=== PATIENT | female | born 1985 | race Caucasian/White ===

== ENCOUNTER 2017-07-22 07:50 | Day surgery (SDC) | payer BC, OTHER ==
[~2017-07-22] VITALS: Ht 162.6 cm; Wt 74.1 kg
[~2017-07-22 07:50] MED LIST: ALPR.5; AZIT250 PO; BENZ100A PO; BUPR150ER PO; ESCI20; IBUP600 PO; Inderal 20 mg T20 MG PO; LAMO25; LORA.5; METHI10 PO; Methimazole5 MG PO; Naprosyn500 MG PO; ONDA4 PO; Omeprazole20 M1; PARO20 PO; PROP10; Paxil40 MG PO; Percocet 5-3251 EACH PO; SERT50 PO; SOMA350 MG PO; Sudogest30 MG PO; TRAZ100; Ultram50 MG PO; Ventolin/Prove6.7 GM INH; [UNRECOGNIZED DRUG - REMARK] PO
[2017-07-22] MEDS ORDERED: Advil200 M1 PO (08:33)
[2018-03-29] MEDS ORDERED: Augmentin 875-1 EACH PO (21:16)
[2018-03-29] MEDS ORDERED: Norco 5-325 Ta1 EACH PO (21:16)
== END 2017-07-22 13:07 | disposition home or self-care (01) ==
LOC: ORSCSDS 07:50
PROVIDERS: Otolaryngology
PROC: 0GTK0ZZ Resection of Thyroid Gland, Open Approach (ICD-10-PCS; principal; 2017-07-22 09:00)
PROC: 0GBJ0ZZ Excision of Thyroid Gland Isthmus, Open Approach (ICD-10-PCS; principal; 2017-07-22 09:00)
DX: E05.00 Thyrotoxicosis with diffuse goiter without thyrotoxic crisis or storm (principal); J44.9 Chronic obstructive pulmonary disease, unspecified; K21.9 Gastro-esophageal reflux disease without esophagitis; F17.210 Nicotine dependence, cigarettes, uncomplicated; Z79.899 Other long term (current) drug therapy
CPT/HCPCS: 88307; J0171; J0330; J1100; J1200; J2250; J2270; J2405; J2550; J3010; J7040; J7120

== ENCOUNTER → 2017-10-27 | Outpatient (CLI) | payer BC ==
[~2017-10-27] MED LIST changes: +Advil200 M1 PO
[2017-10-27 14:37] LABS: BASOPHILS PERCENT AUTO 1 % (0-2); EOSINOPHILS PERCENT AUTO 6 % (0-6); Hematocrit 36.8 % (33.0-51.0); Hemoglobin 12.8 g/dL (11.5-16.0); IMMATURE GRAN ABSOLUTE AUTO 0.03 K/mm3 (0.00-0.10); IMMATURE GRAN PERCENT AUTO 0 % (0-1); LYMPHOCYTES ABSOLUTE AUTO 3.83 K/mm3 (0.84-5.20); LYMPHOCYTES PERCENT AUTO 36 % (21-46); MONOCYTES ABSOLUTE AUTO 0.61 K/mm3 (0.16-1.47); MONOCYTES PERCENT AUTO 6 % (4-13); Mean Corpuscular HGB 31.4 pg (26.0-34.0); Mean Corpuscular HGB Conc 34.8 g/dL (31.5-36.5); Mean Corpuscular Volume 90 fL (80-100); Mean Platelet Volume 10.2 fL (9.1-12.4); NEUTROPHILS ABSOLUTE AUTO 5.54 K/mm3 (1.96-9.15); NEUTROPHILS PERCENT AUTO 52 % (41-73); Platelet Count 358 K/mm3 (150-400); RDW Coefficient Variation 12.9 % (11.7-14.2); RDW Standard Deviation 42.5 fL (35.1-46.3); Red Blood Cell Count 4.07 M/mm3 (3.80-5.20); White Blood Cell Count 10.71 K/mm3 (4.00-11.30)
[2017-10-27 14:59] LABS: Alanine Aminotransfer (ALT/SGP 24 U/L (12-78); Albumin, Blood 3.7 g/dL (3.4-5.0); Albumin/Globulin Ratio 0.9 (0.8-1.8); Alk Phos 82 U/L (40-126); Anion Gap 10 mmol/L (6-16); Aspartate Aminotrans (AST/SGOT 17 U/L (12-37); Bilirubin, Total 0.2 mg/dL (0.1-1.0); Blood Urea Nitrogen 14 mg/dL (8-24); Bun/Creatinine Ratio 20.9 (12.0-20.0); CO2, Blood 25 mmol/L (21-32); Calcium, Blood 8.9 mg/dL (8.5-10.1); Chloride, Blood 103 mmol/L (98-108); Creatinine, Blood 0.67 mg/dL (0.40-1.00); Free Thyroxine 1.15 ng/dL (0.70-1.60); Globulin, Blood 3.9 g/dL (2.2-4.0); Glomerular Filtration Rate >60 (60-); Glucose, Blood 127 mg/dL (70-99); Potassium, Blood 3.6 mmol/L (3.5-5.5); Sodium, Blood 138 mmol/L (136-145); Thyroid Stimulating Hormone 1.078 uIU/mL (0.360-4.800); Total Protein, Blood 7.6 g/dL (6.4-8.2)
== END ==
LOC: LAB SHORT 14:34 → LAB EV 14:34
PROVIDERS: General Practice
DX: E05.00 Thyrotoxicosis with diffuse goiter without thyrotoxic crisis or storm (principal); R53.81 Other malaise; R53.83 Other fatigue
CPT/HCPCS: 80053; 84439; 84443; 84481; 85025; 86800

== ENCOUNTER → 2018-02-12 | Outpatient (CLI) | payer OTHER ==
[2018-02-12 13:40] LABS: BASOPHILS ABSOLUTE AUTO 0.07 K/mm3 (0.00-0.23); BASOPHILS PERCENT AUTO 1 % (0-2); EOSINOPHILS ABSOLUTE AUTO 0.36 K/mm3 (0.00-0.68); EOSINOPHILS PERCENT AUTO 3 % (0-6); Hematocrit 39.2 % (33.0-51.0); Hemoglobin 13.3 g/dL (11.5-16.0); IMMATURE GRAN ABSOLUTE AUTO 0.02 K/mm3 (0.00-0.10); IMMATURE GRAN PERCENT AUTO 0 % (0-1); LYMPHOCYTES ABSOLUTE AUTO 2.68 K/mm3 (0.84-5.20); LYMPHOCYTES PERCENT AUTO 24 % (21-46); MONOCYTES ABSOLUTE AUTO 0.61 K/mm3 (0.16-1.47); MONOCYTES PERCENT AUTO 5 % (4-13); Mean Corpuscular HGB 30.3 pg (26.0-34.0); Mean Corpuscular HGB Conc 33.9 g/dL (31.5-36.5); Mean Corpuscular Volume 89 fL (80-100); Mean Platelet Volume 10.2 fL (9.1-12.4); NEUTROPHILS ABSOLUTE AUTO 7.54 K/mm3 (1.96-9.15); NEUTROPHILS PERCENT AUTO 67 % (41-73); Platelet Count 387 K/mm3 (150-400); RDW Coefficient Variation 13.2 % (11.7-14.2); RDW Standard Deviation 43.5 fL (35.1-46.3); Red Blood Cell Count 4.39 M/mm3 (3.80-5.20); White Blood Cell Count 11.28 K/mm3 (4.00-11.30)
[2018-02-12 13:45] LABS: Anion Gap 10 mmol/L (6-16); Blood Urea Nitrogen 11 mg/dL (8-24); Bun/Creatinine Ratio 15.9 (12.0-20.0); CO2, Blood 24 mmol/L (21-32); Chloride, Blood 102 mmol/L (98-108); Creatinine, Blood 0.69 mg/dL (0.40-1.00); Glomerular Filtration Rate >60 (60-); Glucose, Blood 93 mg/dL (70-99); Potassium, Blood 3.8 mmol/L (3.5-5.5); Sodium, Blood 136 mmol/L (136-145)
== END | disposition home or self-care (01) ==
LOC: LAB SHORT 13:36 → LAB EV 13:36
PROVIDERS: Physician Assistant Surgical
DX: R51 Headache (principal)
CPT/HCPCS: 80048; 85025

== ENCOUNTER 2018-09-30 14:56 | Emergency (ER) | payer OTHER ==
[~2018-09-30] VITALS: Ht 160 cm; Wt 81.7 kg
[~2018-09-30 14:56] MED LIST changes: +Augmentin 875-1 EACH PO; +Norco 5-325 Ta1 EACH PO
[2018-09-30] MEDS ORDERED: AMIT25 (15:03)
[2018-09-30] MEDS ORDERED: LEVSOD75 (15:03)
[2018-09-30 16:08] LABS: Source, Urine Clean Catch
[2018-09-30 16:11] LABS: BASOPHILS ABSOLUTE AUTO 0.05 K/mm3 (0.00-0.23); BASOPHILS PERCENT AUTO 1 % (0-2); EOSINOPHILS PERCENT AUTO 0 % (0-6); Hematocrit 40.2 % (33.0-51.0); Hemoglobin 13.7 g/dL (11.5-16.0); IMMATURE GRAN ABSOLUTE AUTO 0.03 K/mm3 (0.00-0.10); IMMATURE GRAN PERCENT AUTO 0 % (0-1); LYMPHOCYTES ABSOLUTE AUTO 0.99 K/mm3 (0.84-5.20); LYMPHOCYTES PERCENT AUTO 13 % (21-46); MONOCYTES ABSOLUTE AUTO 0.14 K/mm3 (0.16-1.47); MONOCYTES PERCENT AUTO 2 % (4-13); Mean Corpuscular HGB 31.1 pg (26.0-34.0); Mean Corpuscular HGB Conc 34.1 g/dL (31.5-36.5); Mean Corpuscular Volume 91 fL (80-100); Mean Platelet Volume 10.8 fL (9.1-12.4); NEUTROPHILS ABSOLUTE AUTO 6.28 K/mm3 (1.96-9.15); NEUTROPHILS PERCENT AUTO 84 % (41-73); Platelet Count 366 K/mm3 (150-400); RDW Coefficient Variation 13.7 % (11.7-14.2); RDW Standard Deviation 46.3 fL (35.1-46.3); Red Blood Cell Count 4.41 M/mm3 (3.80-5.20); White Blood Cell Count 7.49 K/mm3 (4.00-11.30)
[2018-09-30 16:22] LABS: Bilirubin, Urine Neg (Neg); Blood, Urine Neg (Neg); Glucose Qualitative, Urine Neg (Neg); Ketones, Urine Neg (Neg); Leukocyte Esterase, Urine Neg (Neg); Nitrite, Urine Neg (Neg); Protein, Urine Neg (Neg); Specific Gravity, Urine 1.005 (1.003-1.022); Urobilinogen, Urine NORM (Normal)
[2018-09-30 16:37] LABS: Appearance, Urine Clear (Clear); Color, Urine Yellow (P-Yellow)
[2018-09-30 16:38] LABS: Alanine Aminotransfer (ALT/SGP 38 U/L (12-78); Albumin/Globulin Ratio 0.8 (0.8-1.8); Alk Phos 72 U/L (50-136); Anion Gap 8 mmol/L (6-16); Aspartate Aminotrans (AST/SGOT 37 U/L (12-37); Bilirubin, Total 0.3 mg/dL (0.1-1.0); Blood Urea Nitrogen 7 mg/dL (8-24); Bun/Creatinine Ratio 14.1 (12.0-20.0); CO2, Blood 22 mmol/L (21-32); Calcium, Blood 9.1 mg/dL (8.5-10.1); Chloride, Blood 107 mmol/L (98-108); Globulin, Blood 4.9 g/dL (2.2-4.0); Glomerular Filtration Rate >60 (60-); Glucose, Blood 119 mg/dL (70-99); Potassium, Blood 4.1 mmol/L (3.5-5.5); Sodium, Blood 137 mmol/L (136-145); Total Protein, Blood 8.9 g/dL (6.4-8.2)
[2018-09-30 16:49] LABS: Influenza A Negative (NEGATIVE); Influenza B Negative (NEGATIVE)
== END 2018-09-30 20:03 | disposition home or self-care (01) ==
LOC: ER 14:56
PROVIDERS: Physician Assistant
DX: R55 Syncope and collapse (principal); K59.00 Constipation, unspecified; Z88.5 Allergy status to narcotic agent; Z79.899 Other long term (current) drug therapy
CPT/HCPCS: 36415; 71046; 80053; 81003; 81025; 85025; 85379; 87804; 93005; 93010; 96361; 96374; 99284-25; J2405; J7030

== ENCOUNTER 2018-11-13 05:50 | Emergency (ER) | payer SELFPAY ==
[~2018-11-13] VITALS: Ht 162.6 cm; Wt 54.4 kg
[~2018-11-13 05:50] MED LIST changes: +AMIT25; +LEVSOD75
[2018-11-13] MEDS ORDERED: Pseudoephedrine30 MG PO (06:28)
[2018-11-13] MEDS ORDERED: FLONASE ALLERG9.9 ML (06:28)
[2018-11-13 06:54] LABS: BASOPHILS ABSOLUTE AUTO 0.07 K/mm3 (0.00-0.23); BASOPHILS PERCENT AUTO 1 % (0-2); EOSINOPHILS ABSOLUTE AUTO 0.31 K/mm3 (0.00-0.68); EOSINOPHILS PERCENT AUTO 3 % (0-6); Hematocrit 38.3 % (33.0-51.0); Hemoglobin 12.9 g/dL (11.5-16.0); IMMATURE GRAN ABSOLUTE AUTO 0.03 K/mm3 (0.00-0.10); IMMATURE GRAN PERCENT AUTO 0 % (0-1); LYMPHOCYTES ABSOLUTE AUTO 4.85 K/mm3 (0.84-5.20); LYMPHOCYTES PERCENT AUTO 47 % (21-46); MONOCYTES ABSOLUTE AUTO 0.75 K/mm3 (0.16-1.47); MONOCYTES PERCENT AUTO 7 % (4-13); Mean Corpuscular HGB 31.2 pg (26.0-34.0); Mean Corpuscular HGB Conc 33.7 g/dL (31.5-36.5); Mean Corpuscular Volume 93 fL (80-100); Mean Platelet Volume 10.4 fL (9.1-12.4); NEUTROPHILS ABSOLUTE AUTO 4.28 K/mm3 (1.96-9.15); NEUTROPHILS PERCENT AUTO 42 % (41-73); Platelet Count 330 K/mm3 (150-400); RDW Coefficient Variation 12.9 % (11.7-14.2); Red Blood Cell Count 4.14 M/mm3 (3.80-5.20); White Blood Cell Count 10.29 K/mm3 (4.00-11.30)
[2018-11-13 07:14] LABS: Alanine Aminotransfer (ALT/SGP 25 U/L (12-78); Albumin, Blood 3.6 g/dL (3.4-5.0); Albumin/Globulin Ratio 0.9 (0.8-1.8); Alk Phos 93 U/L (50-136); Anion Gap 7 mmol/L (6-16); Aspartate Aminotrans (AST/SGOT 14 U/L (12-37); Bilirubin, Total 0.2 mg/dL (0.1-1.0); Blood Urea Nitrogen 12 mg/dL (8-24); Bun/Creatinine Ratio 18.4 (12.0-20.0); CO2, Blood 26 mmol/L (21-32); Calcium, Blood 8.4 mg/dL (8.5-10.1); Chloride, Blood 105 mmol/L (98-108); Creatinine, Blood 0.65 mg/dL (0.40-1.00); Free Thyroxine 1.59 ng/dL (0.70-1.60); Globulin, Blood 3.8 g/dL (2.2-4.0); Glomerular Filtration Rate >60 (60-); Glucose, Blood 102 mg/dL (70-99); Magnesium, Blood 2.1 mg/dL (1.6-2.4); Potassium, Blood 3.4 mmol/L (3.5-5.5); Sodium, Blood 138 mmol/L (136-145); Total Protein, Blood 7.4 g/dL (6.4-8.2)
[2018-11-13 07:18] LABS: Thyroid Stimulating Hormone 0.371 uIU/mL (0.360-4.800)
[2018-11-13] MEDS ORDERED: Vistaril25 MG PO (07:41)
== END 2018-11-13 08:12 | disposition home or self-care (01) ==
LOC: ER 05:50
PROVIDERS: Emergency Medicine
DX: F41.9 Anxiety disorder, unspecified (principal); J06.9 Acute upper respiratory infection, unspecified; R00.0 Tachycardia, unspecified; E03.9 Hypothyroidism, unspecified; Z88.5 Allergy status to narcotic agent; Z79.899 Other long term (current) drug therapy; F17.200 Nicotine dependence, unspecified, uncomplicated
CPT/HCPCS: 36415; 80053; 83735; 84439; 84443; 85025; 93005; 93010; 96374; 99285-25; J2060

== ENCOUNTER → 2019-02-13 | Outpatient (CLI) | payer OTHER ==
[~2019-02-13] MED LIST changes: +FLONASE ALLERG9.9 ML; +Pseudoephedrine30 MG PO; +Vistaril25 MG PO
[2019-02-13 13:30] LABS: U Amphetamine Screen Not Detected; U Barbituate Screen Not Detected; U Benzodiazapine Screen Not Detected; U Buprenorphine Screen Not Detected; U Cannabinoids Screen Not Detected; U Cocaine Screen Not Detected; U Methadone Screen Not Detected; U Methamphetamine Screen Not Detected; U Opiates Screen Not Detected; U Oxycodone Screen Not Detected; U Phencyclidine Screen Not Detected; U Propoxyphene Screen Not Detected
== END ==
LOC: LAB SHORT 11:20 → LAB 11:20
PROVIDERS: Registered Nurse
DX: I10 Essential (primary) hypertension (principal); F41.1 Generalized anxiety disorder; Z78.9 Other specified health status

== ENCOUNTER 2019-06-04 09:48 | Emergency (ER) | payer OTHER ==
[~2019-06-04] VITALS: Ht 162.6 cm; Wt 64.4 kg
[2019-06-04 11:44] LABS: BASOPHILS ABSOLUTE AUTO 0.06 K/mm3 (0.00-0.23); BASOPHILS PERCENT AUTO 1 % (0-2); EOSINOPHILS ABSOLUTE AUTO 0.04 K/mm3 (0.00-0.68); EOSINOPHILS PERCENT AUTO 0 % (0-6); Hematocrit 43.7 % (33.0-51.0); Hemoglobin 14.2 g/dL (11.5-16.0); IMMATURE GRAN ABSOLUTE AUTO 0.03 K/mm3 (0.00-0.10); IMMATURE GRAN PERCENT AUTO 0 % (0-1); LYMPHOCYTES ABSOLUTE AUTO 1.73 K/mm3 (0.84-5.20); LYMPHOCYTES PERCENT AUTO 20 % (21-46); MONOCYTES ABSOLUTE AUTO 0.53 K/mm3 (0.16-1.47); MONOCYTES PERCENT AUTO 6 % (4-13); Mean Corpuscular HGB 31.8 pg (26.0-34.0); Mean Corpuscular HGB Conc 32.5 g/dL (31.5-36.5); Mean Corpuscular Volume 98 fL (80-100); Mean Platelet Volume 10.6 fL (9.1-12.4); NEUTROPHILS PERCENT AUTO 73 % (41-73); Platelet Count 350 K/mm3 (150-400); RDW Coefficient Variation 13.1 % (11.7-14.2); RDW Standard Deviation 46.8 fL (35.1-46.3); Red Blood Cell Count 4.47 M/mm3 (3.80-5.20); White Blood Cell Count 8.89 K/mm3 (4.00-11.30)
[2019-06-04 12:04] LABS: Alanine Aminotransfer (ALT/SGP 24 U/L (12-78); Albumin, Blood 4.2 g/dL (3.4-5.0); Albumin/Globulin Ratio 1.1 (0.8-1.8); Alk Phos 76 U/L (50-136); Anion Gap 5 mmol/L (6-16); Aspartate Aminotrans (AST/SGOT 10 U/L (12-37); Bilirubin, Total 0.2 mg/dL (0.1-1.0); Blood Urea Nitrogen 10 mg/dL (8-24); CO2, Blood 27 mmol/L (21-32); Calcium, Blood 9.1 mg/dL (8.5-10.1); Chloride, Blood 108 mmol/L (98-108); Creatinine, Blood 0.72 mg/dL (0.40-1.00); Globulin, Blood 3.8 g/dL (2.2-4.0); Glomerular Filtration Rate >60 (60-); Glucose, Blood 96 mg/dL (70-99); Potassium, Blood 3.8 mmol/L (3.5-5.5); Sodium, Blood 140 mmol/L (136-145)
[2019-06-04 12:46] LABS: Free Thyroxine 1.16 ng/dL (0.70-1.60); Thyroid Stimulating Hormone 0.459 uIU/mL (0.360-4.800)
[2019-06-04 13:29] LABS: Source, Urine Clean Catch
[2019-06-04 13:48] LABS: Bilirubin, Urine Neg (Neg); Blood, Urine Neg (Neg); Glucose Qualitative, Urine Neg (Neg); Ketones, Urine Neg (Neg); Leukocyte Esterase, Urine Neg (Neg); Nitrite, Urine Neg (Neg); Protein, Urine Neg (Neg); Urobilinogen, Urine NORM (Normal)
[2019-06-04 13:49] LABS: Appearance, Urine Clear (Clear); Color, Urine Yellow (P-Yellow)
== END 2019-06-04 14:35 | disposition home or self-care (01) ==
LOC: ER 09:48
PROVIDERS: Emergency Medicine; Physician Assistant
DX: R00.2 Palpitations (principal); E03.9 Hypothyroidism, unspecified; F41.9 Anxiety disorder, unspecified; Z87.891 Personal history of nicotine dependence; Z88.5 Allergy status to narcotic agent; Z79.899 Other long term (current) drug therapy
CPT/HCPCS: 36415; 80053; 81003; 84439; 84443; 85025; 93005; 93010; 99283-25

== ENCOUNTER → 2019-11-13 | Outpatient (CLI) | payer OTHER | END | disposition home or self-care (01) | LOC: LAB SHORT 12:00 → LAB 12:00 | DX: R10.9 Unspecified abdominal pain (principal) | CPT/HCPCS: 87077; 87086; 87147; 87186 ==

== ENCOUNTER → 2020-05-31 | Outpatient (CLI) | payer BC ==
[~2020-05-31] MED LIST changes: +ALPR.25; +CYCL10; +Camila0.35 MG PO; +FLUT.05NI INH; +OMEP20ER PO
[2020-05-31 16:18] LABS: BASOPHILS ABSOLUTE AUTO 0.07 K/mm3 (0.00-0.23); BASOPHILS PERCENT AUTO 1 % (0-2); EOSINOPHILS ABSOLUTE AUTO 0.05 K/mm3 (0.00-0.68); EOSINOPHILS PERCENT AUTO 1 % (0-6); Hematocrit 40.6 % (33.0-51.0); Hemoglobin 14.1 g/dL (11.5-16.0); IMMATURE GRAN ABSOLUTE AUTO 0.04 K/mm3 (0.00-0.10); IMMATURE GRAN PERCENT AUTO 0 % (0-1); LYMPHOCYTES ABSOLUTE AUTO 1.83 K/mm3 (0.84-5.20); LYMPHOCYTES PERCENT AUTO 17 % (21-46); MONOCYTES ABSOLUTE AUTO 0.48 K/mm3 (0.16-1.47); MONOCYTES PERCENT AUTO 5 % (4-13); Mean Corpuscular HGB 31.3 pg (26.0-34.0); Mean Corpuscular HGB Conc 34.7 g/dL (31.5-36.5); Mean Corpuscular Volume 90 fL (80-100); Mean Platelet Volume 10.5 fL (9.1-12.4); NEUTROPHILS ABSOLUTE AUTO 8.15 K/mm3 (1.96-9.15); NEUTROPHILS PERCENT AUTO 77 % (41-73); Platelet Count 368 K/mm3 (150-400); RDW Coefficient Variation 12.8 % (11.7-14.2); RDW Standard Deviation 42.3 fL (35.1-46.3); Red Blood Cell Count 4.51 M/mm3 (3.80-5.20); White Blood Cell Count 10.62 K/mm3 (4.00-11.30)
[2020-05-31 16:30] LABS: Anion Gap 12 mmol/L (6-16); Blood Urea Nitrogen 8 mg/dL (8-24); Bun/Creatinine Ratio 12.3 (12.0-20.0); CO2, Blood 23 mmol/L (21-32); Calcium, Blood 9.1 mg/dL (8.5-10.1); Chloride, Blood 103 mmol/L (98-108); Creatinine, Blood 0.65 mg/dL (0.40-1.00); Glomerular Filtration Rate >60 (60-); Glucose, Blood 95 mg/dL (70-99); Potassium, Blood 3.8 mmol/L (3.5-5.5); Sodium, Blood 138 mmol/L (136-145); Thyroid Stimulating Hormone 1.938 uIU/mL (0.360-4.800)
== END | disposition home or self-care (01) ==
LOC: LAB SHORT 16:05 → LAB EV 16:05
PROVIDERS: Physician Assistant Medical
DX: E03.9 Hypothyroidism, unspecified (principal)
CPT/HCPCS: 80048; 84443; 85025

== ENCOUNTER → 2020-07-16 | Outpatient (CLI) | payer BC ==
[2020-07-16 13:22] LABS: BASOPHILS ABSOLUTE AUTO 0.08 K/mm3 (0.00-0.23); BASOPHILS PERCENT AUTO 1 % (0-2); EOSINOPHILS ABSOLUTE AUTO 0.06 K/mm3 (0.00-0.68); EOSINOPHILS PERCENT AUTO 1 % (0-6); Hematocrit 40.5 % (33.0-51.0); Hemoglobin 14.1 g/dL (11.5-16.0); IMMATURE GRAN ABSOLUTE AUTO 0.02 K/mm3 (0.00-0.10); IMMATURE GRAN PERCENT AUTO 0 % (0-1); LYMPHOCYTES ABSOLUTE AUTO 1.89 K/mm3 (0.84-5.20); LYMPHOCYTES PERCENT AUTO 22 % (21-46); MONOCYTES ABSOLUTE AUTO 0.52 K/mm3 (0.16-1.47); MONOCYTES PERCENT AUTO 6 % (4-13); Mean Corpuscular HGB 31.7 pg (26.0-34.0); Mean Corpuscular HGB Conc 34.8 g/dL (31.5-36.5); Mean Corpuscular Volume 91 fL (80-100); Mean Platelet Volume 10.2 fL (9.1-12.4); NEUTROPHILS ABSOLUTE AUTO 5.94 K/mm3 (1.96-9.15); NEUTROPHILS PERCENT AUTO 70 % (41-73); Platelet Count 367 K/mm3 (150-400); RDW Coefficient Variation 12.6 % (11.7-14.2); RDW Standard Deviation 41.5 fL (35.1-46.3); Red Blood Cell Count 4.45 M/mm3 (3.80-5.20); White Blood Cell Count 8.51 K/mm3 (4.00-11.30)
[2020-07-16 13:34] LABS: Alanine Aminotransfer (ALT/SGP 45 U/L (12-78); Albumin, Blood 4.2 g/dL (3.4-5.0); Alk Phos 81 U/L (40-126); Anion Gap 11 mmol/L (6-16); Aspartate Aminotrans (AST/SGOT 25 U/L (12-37); Bilirubin, Total 0.3 mg/dL (0.1-1.0); Blood Urea Nitrogen 8 mg/dL (8-24); Bun/Creatinine Ratio 13.3 (12.0-20.0); CO2, Blood 25 mmol/L (21-32); Calcium, Blood 9.1 mg/dL (8.5-10.1); Chloride, Blood 102 mmol/L (98-108); Globulin, Blood 4.2 g/dL (2.2-4.0); Glomerular Filtration Rate >60 (60-); Glucose, Blood 94 mg/dL (70-99); Potassium, Blood 3.9 mmol/L (3.5-5.5); Sodium, Blood 138 mmol/L (136-145); Total Protein, Blood 8.4 g/dL (6.4-8.2)
== END | disposition home or self-care (01) ==
LOC: LAB SHORT 13:19
PROVIDERS: Physician Assistant Medical
DX: R50.9 Fever, unspecified (principal)
CPT/HCPCS: 80053; 85025

== ENCOUNTER → 2020-07-19 | Outpatient (CLI) | payer BC | LOC: LAB SHORT 15:13 | DX: M54.5 Low back pain (principal) | CPT/HCPCS: 87086 ==

== ENCOUNTER → 2021-01-03 | Outpatient (CLI) | payer BC | LOC: LAB SHORT 07:48 → LAB 07:48 | DX: L57.0 Actinic keratosis (principal) | CPT/HCPCS: 88305 ==

== ENCOUNTER → 2021-01-20 | Outpatient (CLI) | payer BC | END | disposition home or self-care (01) | LOC: LAB 10:30 → LAB SHORT 10:30 | DX: N39.9 Disorder of urinary system, unspecified (principal) | CPT/HCPCS: 87086 ==

== ENCOUNTER → 2021-09-20 | Outpatient (CLI) | payer BC, OTHER ==
[2021-09-20 17:25] LABS: BASOPHILS ABSOLUTE AUTO 0.08 K/mm3 (0.00-0.23); BASOPHILS PERCENT AUTO 1 % (0-2); EOSINOPHILS ABSOLUTE AUTO 0.05 K/mm3 (0.00-0.68); EOSINOPHILS PERCENT AUTO 1 % (0-6); Hematocrit 39.4 % (33.0-51.0); Hemoglobin 13.6 g/dL (11.5-16.0); IMMATURE GRAN ABSOLUTE AUTO 0.06 K/mm3 (0.00-0.10); IMMATURE GRAN PERCENT AUTO 1 % (0-1); LYMPHOCYTES ABSOLUTE AUTO 1.69 K/mm3 (0.84-5.20); LYMPHOCYTES PERCENT AUTO 17 % (21-46); MONOCYTES PERCENT AUTO 8 % (4-13); Mean Corpuscular HGB 31.5 pg (26.0-34.0); Mean Corpuscular HGB Conc 34.5 g/dL (31.5-36.5); Mean Corpuscular Volume 91 fL (80-100); Mean Platelet Volume 10.3 fL (9.1-12.4); NEUTROPHILS ABSOLUTE AUTO 7.21 K/mm3 (1.96-9.15); NEUTROPHILS PERCENT AUTO 73 % (41-73); Platelet Count 366 K/mm3 (150-400); RDW Standard Deviation 42.7 fL (35.1-46.3); Red Blood Cell Count 4.32 M/mm3 (3.80-5.20); White Blood Cell Count 9.89 K/mm3 (4.00-11.30)
[2021-09-20 17:29] LABS: Anion Gap 9 mmol/L (6-16); Blood Urea Nitrogen 9 mg/dL (8-24); Bun/Creatinine Ratio 10.1 (12.0-20.0); CO2, Blood 26 mmol/L (21-32); Calcium, Blood 8.6 mg/dL (8.5-10.1); Chloride, Blood 104 mmol/L (98-108); Creatinine, Blood 0.89 mg/dL (0.40-1.00); Glomerular Filtration Rate >60 (60-); Glucose, Blood 108 mg/dL (70-99); Potassium, Blood 3.8 mmol/L (3.5-5.5); Sodium, Blood 139 mmol/L (136-145)
== END | disposition home or self-care (01) ==
LOC: LAB SHORT 17:19
PROVIDERS: Physician Assistant Surgical
DX: R55 Syncope and collapse (principal)
CPT/HCPCS: 80048; 84443; 85025

== ENCOUNTER 2021-10-01 21:40 | Emergency (ER) | payer BC, OTHER ==
[~2021-10-01] VITALS: Ht 162.6 cm; Wt 81.7 kg
[2021-10-01 22:37] LABS: BASOPHILS ABSOLUTE AUTO 0.08 K/mm3 (0.00-0.23); BASOPHILS PERCENT AUTO 1 % (0-2); EOSINOPHILS ABSOLUTE AUTO 0.05 K/mm3 (0.00-0.68); EOSINOPHILS PERCENT AUTO 0 % (0-6); Hematocrit 42.5 % (33.0-51.0); Hemoglobin 14.4 g/dL (11.5-16.0); IMMATURE GRAN ABSOLUTE AUTO 0.03 K/mm3 (0.00-0.10); IMMATURE GRAN PERCENT AUTO 0 % (0-1); LYMPHOCYTES PERCENT AUTO 20 % (21-46); MONOCYTES ABSOLUTE AUTO 0.65 K/mm3 (0.16-1.47); MONOCYTES PERCENT AUTO 5 % (4-13); Mean Corpuscular HGB Conc 33.9 g/dL (31.5-36.5); Mean Corpuscular Volume 91 fL (80-100); NEUTROPHILS ABSOLUTE AUTO 8.79 K/mm3 (1.96-9.15); NEUTROPHILS PERCENT AUTO 73 % (41-73); Platelet Count 432 K/mm3 (150-400); RDW Coefficient Variation 12.6 % (11.7-14.2); RDW Standard Deviation 42.5 fL (35.1-46.3); Red Blood Cell Count 4.65 M/mm3 (3.80-5.20)
[2021-10-01 22:58] LABS: Alanine Aminotransfer (ALT/SGP 26 U/L (12-78); Albumin, Blood 4.1 g/dL (3.4-5.0); Albumin/Globulin Ratio 0.9 (0.8-1.8); Alk Phos 91 U/L (50-136); Anion Gap 7 mmol/L (6-16); Aspartate Aminotrans (AST/SGOT 5 U/L (12-37); Bilirubin, Total 0.2 mg/dL (0.1-1.0); Blood Urea Nitrogen 9 mg/dL (8-24); Bun/Creatinine Ratio 13.5 (12.0-20.0); CO2, Blood 24 mmol/L (21-32); Calcium, Blood 9.1 mg/dL (8.5-10.1); Chloride, Blood 108 mmol/L (98-108); Creatinine, Blood 0.67 mg/dL (0.40-1.00); Globulin, Blood 4.5 g/dL (2.2-4.0); Glomerular Filtration Rate >60 (60-); Glucose, Blood 100 mg/dL (70-99); Potassium, Blood 3.7 mmol/L (3.5-5.5); Sodium, Blood 139 mmol/L (136-145); Total Protein, Blood 8.6 g/dL (6.4-8.2)
[2021-10-01 23:42] LABS: Source, Urine Voided
[2021-10-01 23:47] LABS: Bilirubin, Urine Neg (Neg); Blood, Urine Neg (Neg); Glucose Qualitative, Urine Neg (Neg); Ketones, Urine Neg (Neg); Leukocyte Esterase, Urine Neg (Neg); Nitrite, Urine Neg (Neg); Protein, Urine Neg (Neg); Specific Gravity, Urine 1.005 (1.003-1.022); Urobilinogen, Urine NORM (Normal)
[2021-10-01 23:51] LABS: Appearance, Urine Clear (Clear); Color, Urine Pale Yellow (P-Yellow)
== END 2021-10-02 01:40 | disposition home or self-care (01) ==
LOC: ER 21:40
PROVIDERS: Student in an Organized Health Care Education/Training Program
DX: R42 Dizziness and giddiness (principal); R00.2 Palpitations; E03.9 Hypothyroidism, unspecified; Z88.5 Allergy status to narcotic agent; Z88.6 Allergy status to analgesic agent; Z79.899 Other long term (current) drug therapy; Z87.891 Personal history of nicotine dependence
CPT/HCPCS: 80053; 81003; 84484; 85025; 93005; 93010

== ENCOUNTER → 2021-12-27 | Outpatient (CLI) | payer BC, OTHER ==
[2021-12-29 08:23] LABS: Candida species (DNA Probe) Negative (NEGATIVE); G. vaginalis (DNA Probe) Negative (NEGATIVE); T. vaginalis (DNA Probe) Negative (NEGATIVE)
[2021-12-30 01:10] LABS: CHLAMYDIA TRACHOMATIS, NAA Negative (Negative)
== END ==
LOC: LAB 17:00 → LAB SHORT 17:00
PROVIDERS: Nurse Practitioner Family
DX: N89.8 Other specified noninflammatory disorders of vagina (principal); R10.2 Pelvic and perineal pain
CPT/HCPCS: 87480; 87491; 87510; 87591; 87660

== ENCOUNTER → 2022-08-07 | Outpatient (CLI) | payer OTHER ==
[2022-08-07 09:21] LABS: BASOPHILS ABSOLUTE AUTO 0.07 K/mm3 (0.00-0.23); BASOPHILS PERCENT AUTO 1 % (0-2); EOSINOPHILS ABSOLUTE AUTO 0.09 K/mm3 (0.00-0.68); EOSINOPHILS PERCENT AUTO 1 % (0-6); Hematocrit 42.9 % (33.0-51.0); Hemoglobin 14.9 g/dL (11.5-16.0); IMMATURE GRAN ABSOLUTE AUTO 0.02 K/mm3 (0.00-0.10); IMMATURE GRAN PERCENT AUTO 0 % (0-1); LYMPHOCYTES ABSOLUTE AUTO 2.03 K/mm3 (0.84-5.20); LYMPHOCYTES PERCENT AUTO 26 % (21-46); MONOCYTES ABSOLUTE AUTO 0.47 K/mm3 (0.16-1.47); MONOCYTES PERCENT AUTO 6 % (4-13); Mean Corpuscular HGB 33.5 pg (26.0-34.0); Mean Corpuscular HGB Conc 34.7 g/dL (31.5-36.5); Mean Corpuscular Volume 96 fL (80-100); Mean Platelet Volume 10.8 fL (9.1-12.4); NEUTROPHILS ABSOLUTE AUTO 5.11 K/mm3 (1.96-9.15); NEUTROPHILS PERCENT AUTO 66 % (41-73); Platelet Count 293 K/mm3 (150-400); Red Blood Cell Count 4.45 M/mm3 (3.80-5.20); White Blood Cell Count 7.79 K/mm3 (4.00-11.30)
[2022-08-07 09:46] LABS: Albumin, Blood 4.2 g/dL (3.4-5.0); Bilirubin, Total 0.4 mg/dL (0.1-1.0); Bun/Creatinine Ratio 17.3 (12.0-20.0); Calcium, Blood 9.1 mg/dL (8.5-10.1); Creatinine, Blood 0.75 mg/dL (0.40-1.00); Globulin, Blood 4.1 g/dL (2.2-4.0); Thyroid Stimulating Hormone 0.819 uIU/mL (0.360-4.800); Total Protein, Blood 8.3 g/dL (6.4-8.2)
== END | disposition home or self-care (01) ==
LOC: LAB SHORT 09:13
PROVIDERS: Physician Assistant
DX: E03.9 Hypothyroidism, unspecified (principal); R10.9 Unspecified abdominal pain
CPT/HCPCS: 80053; 82150; 84443; 85025

== ENCOUNTER 2023-01-23 09:05 | Day surgery (SDC) | payer OTHER ==
[~2023-01-23] VITALS: Ht 162.6 cm; Wt 75.1 kg
[2023-01-23] MEDS ORDERED: SYNTHROID112 M12 (09:54)
[2023-01-23] MEDS ORDERED: BUSPIRONE HCL10 M6 PO (09:55)
[2023-01-23] MEDS ORDERED: PANTOPRAZOLE SO40 M2 PO (09:55)
[2023-01-23] MEDS ORDERED: LORAZEPAM0.5 MG PO (09:55)
--- NOTE | 2023-01-23 11:05 | NUR ---
01/23/23 1105 Claudia Call LIDOCAINE 2% WITH EPI 1:100,000 DILUTED 1:1 WITH NORMAL SALINE TO MAKE LIDOCAINE 1% WITH EPI 1:200,000 FOR INJECTION AT [facility] BY DR HAJI. 3ML INJECTED.
[2023-01-23 14:21] VITALS: BP 128/82
--- NOTE | 2023-01-23 15:06 | NUR ---
01/23/23 1506 Michel Woody IV REMOVED INTACT. SITE WNL. PT INITIALLY EXPERIENCED NAUSEA UPON ARRIVAL IN SDU AND WAS MEDICATED WITH IV ZOFRAN. . PT'S SBP DROPPED LOW 70 AND DBP LOW 38. B/P RETURNED TO BASELINE AFTER LOWERING PT'S HEAD AND REMAINED AT BASELINE THROUGHOUT STAY IN SDU. PT REPORTED 5/10 PAIN BUT DESCRIBED PAIN TOLERABLE. SHE DECLINED IV PAIN MEDICATION BUT TOOK PERSCRIBED ORAL PAIN MEDICATION THAT HAD BEEN BROUGHT FROM HOME IMMEDIATELY UPON DISCHARGE.
== END 2023-01-23 14:48 | disposition home or self-care (01) ==
LOC: ORSCSDS 09:05
PROVIDERS: Otolaryngology
PROC: 8E09XBZ Computer Assisted Procedure of Head and Neck Region (ICD-10-PCS; principal; 2023-01-23 10:30)
PROC: 09SL4ZZ Reposition Nasal Turbinate, Percutaneous Endoscopic Approach (ICD-10-PCS; principal; 2023-01-23 10:30)
PROC: 099X8ZZ Drainage of Left Sphenoid Sinus, Via Natural or Artificial Opening Endoscopic (ICD-10-PCS; principal; 2023-01-23 10:30)
PROC: 09BM4ZZ Excision of Nasal Septum, Percutaneous Endoscopic Approach (ICD-10-PCS; principal; 2023-01-23 10:30)
PROC: 099S8ZZ Drainage of Right Frontal Sinus, Via Natural or Artificial Opening Endoscopic (ICD-10-PCS; principal; 2023-01-23 10:30)
PROC: 099R8ZZ Drainage of Left Maxillary Sinus, Via Natural or Artificial Opening Endoscopic (ICD-10-PCS; principal; 2023-01-23 10:30)
PROC: 099W8ZZ Drainage of Right Sphenoid Sinus, Via Natural or Artificial Opening Endoscopic (ICD-10-PCS; principal; 2023-01-23 10:30)
PROC: 099V8ZZ Drainage of Left Ethmoid Sinus, Via Natural or Artificial Opening Endoscopic (ICD-10-PCS; principal; 2023-01-23 10:30)
PROC: 099Q8ZZ Drainage of Right Maxillary Sinus, Via Natural or Artificial Opening Endoscopic (ICD-10-PCS; principal; 2023-01-23 10:30)
PROC: 099U8ZZ Drainage of Right Ethmoid Sinus, Via Natural or Artificial Opening Endoscopic (ICD-10-PCS; principal; 2023-01-23 10:30)
PROC: 099T8ZZ Drainage of Left Frontal Sinus, Via Natural or Artificial Opening Endoscopic (ICD-10-PCS; principal; 2023-01-23 10:30)
DX: J32.4 Chronic pansinusitis (principal); J33.9 Nasal polyp, unspecified; J34.3 Hypertrophy of nasal turbinates; J34.2 Deviated nasal septum; E03.9 Hypothyroidism, unspecified; K21.9 Gastro-esophageal reflux disease without esophagitis; Z79.899 Other long term (current) drug therapy
CPT/HCPCS: 88305; 88311; C2625; J0171; J1100; J2405; J2704; J3010; J7120

== ENCOUNTER → 2023-08-11 | Outpatient (CLI) | payer OTHER ==
[~2023-08-11] MED LIST changes: +BUSPIRONE HCL10 M6 PO; +LORAZEPAM0.5 MG PO; +PANTOPRAZOLE SO40 M2 PO; +SYNTHROID112 M12
[2023-08-11 14:09] LABS: BASOPHILS ABSOLUTE AUTO 0.07 K/mm3 (0.00-0.23); BASOPHILS PERCENT AUTO 1 % (0-2); EOSINOPHILS ABSOLUTE AUTO 0.06 K/mm3 (0.00-0.68); EOSINOPHILS PERCENT AUTO 1 % (0-6); Hematocrit 40.9 % (33.0-51.0); Hemoglobin 14.1 g/dL (11.5-16.0); IMMATURE GRAN ABSOLUTE AUTO 0.02 K/mm3 (0.00-0.10); IMMATURE GRAN PERCENT AUTO 0 % (0-1); LYMPHOCYTES ABSOLUTE AUTO 1.92 K/mm3 (0.84-5.20); LYMPHOCYTES PERCENT AUTO 25 % (21-46); MONOCYTES ABSOLUTE AUTO 0.46 K/mm3 (0.16-1.47); MONOCYTES PERCENT AUTO 6 % (4-13); Mean Corpuscular HGB 32.6 pg (26.0-34.0); Mean Corpuscular HGB Conc 34.5 g/dL (31.5-36.5); Mean Corpuscular Volume 95 fL (80-100); Mean Platelet Volume 10.3 fL (9.1-12.4); NEUTROPHILS ABSOLUTE AUTO 5.26 K/mm3 (1.96-9.15); NEUTROPHILS PERCENT AUTO 68 % (41-73); Platelet Count 377 K/mm3 (150-400); RDW Coefficient Variation 12.6 % (11.7-14.2); RDW Standard Deviation 43.7 fL (35.1-46.3); Red Blood Cell Count 4.33 M/mm3 (3.80-5.20); White Blood Cell Count 7.79 K/mm3 (4.00-11.30)
[2023-08-11 14:17] LABS: Albumin, Blood 4.1 g/dL (3.4-5.0); Bilirubin, Total 0.2 mg/dL (0.1-1.0); Bun/Creatinine Ratio 11.5 (12.0-20.0); Calcium, Blood 9.1 mg/dL (8.5-10.1); Creatinine, Blood 0.78 mg/dL (0.40-1.00); Globulin, Blood 4.1 g/dL (2.2-4.0); Potassium, Blood 3.7 mmol/L (3.5-5.5); Total Protein, Blood 8.2 g/dL (6.4-8.2)
== END | disposition home or self-care (01) ==
LOC: LAB 14:00 → LAB SHORT 14:00
PROVIDERS: Physician Assistant
DX: R19.7 Diarrhea, unspecified (principal)
CPT/HCPCS: 80053; 83690; 85025

== ENCOUNTER 2024-06-09 08:26 | Emergency (ER) | payer OTHER ==
[~2024-06-09] VITALS: Ht 162.6 cm; Wt 72.6 kg
[2024-06-09] MEDS ORDERED: TRAZ50 PO (08:52)
[2024-06-09] MEDS ORDERED: Ketorolac Tromethamine 30mg Vial IV ONE (08:55)
[2024-06-09 09:01] LABS: BASOPHILS ABSOLUTE AUTO 0.05 K/mm3 (0.00-0.23); BASOPHILS PERCENT AUTO 1 % (0-2); EOSINOPHILS ABSOLUTE AUTO 0.09 K/mm3 (0.00-0.68); EOSINOPHILS PERCENT AUTO 1 % (0-6); Hematocrit 41.1 % (33.0-51.0); Hemoglobin 14.1 g/dL (11.5-16.0); IMMATURE GRAN ABSOLUTE AUTO 0.04 K/mm3 (0.00-0.10); IMMATURE GRAN PERCENT AUTO 1 % (0-1); LYMPHOCYTES ABSOLUTE AUTO 2.25 K/mm3 (0.84-5.20); LYMPHOCYTES PERCENT AUTO 25 % (21-46); MONOCYTES ABSOLUTE AUTO 0.64 K/mm3 (0.16-1.47); MONOCYTES PERCENT AUTO 7 % (4-13); Mean Corpuscular HGB 31.8 pg (26.0-34.0); Mean Corpuscular HGB Conc 34.3 g/dL (31.5-36.5); Mean Corpuscular Volume 93 fL (80-100); Mean Platelet Volume 10.2 fL (9.1-12.4); NEUTROPHILS ABSOLUTE AUTO 5.78 K/mm3 (1.96-9.15); NEUTROPHILS PERCENT AUTO 65 % (41-73); Platelet Count 315 K/mm3 (150-400); RDW Coefficient Variation 12.7 % (11.7-14.2); RDW Standard Deviation 43.2 fL (35.1-46.3); Red Blood Cell Count 4.44 M/mm3 (3.80-5.20); White Blood Cell Count 8.85 K/mm3 (4.00-11.30)
[2024-06-09 09:19] LABS: Bilirubin, Total 0.5 mg/dL (0.1-1.0); Bun/Creatinine Ratio 17.4 (12.0-20.0); Calcium, Blood 8.9 mg/dL (8.5-10.1); Creatinine, Blood 0.69 mg/dL (0.40-1.00); Globulin, Blood 3.9 g/dL (2.2-4.0); Potassium, Blood 3.8 mmol/L (3.5-5.5); Total Protein, Blood 7.9 g/dL (6.4-8.2)
[2024-06-09] MEDS ORDERED: CYCL10 PO (09:42)
[2024-06-09] MEDS ORDERED: NAPR500 PO (09:42)
[2024-06-09] MEDS ORDERED: LIDO700A20 TOP (09:42)
[2024-06-09 09:56] LABS: Source, Urine Clean Catch
[2024-06-09 10:01] LABS: Appearance, Urine Clear (Clear); Bilirubin, Urine Neg (Neg); Blood, Urine Neg (Neg); Color, Urine Yellow (P-Yellow); Glucose Qualitative, Urine Neg (Neg); Ketones, Urine Neg (Neg); Leukocyte Esterase, Urine Neg (Neg); Nitrite, Urine Neg (Neg); Protein, Urine Neg (Neg); Urobilinogen, Urine NORM (Normal)
[2024-06-09 10:53] VITALS: BP 122/78
== END 2024-06-09 10:53 | disposition home or self-care (01) ==
LOC: ER 08:26
PROVIDERS: Emergency Medicine
DX: M54.6 Pain in thoracic spine (principal); E03.9 Hypothyroidism, unspecified; Z87.891 Personal history of nicotine dependence; Z79.899 Other long term (current) drug therapy; Z88.5 Allergy status to narcotic agent
CPT/HCPCS: 71045; 80053; 81003; 83690; 85025; 93005; 93010; 96374; 99284-25; J1885